=== PATIENT | female | born 1995 | race Caucasian/White ===

== ENCOUNTER 2018-11-09 14:01 | Emergency (ER) | payer OTHER, SELFPAY | END 2018-11-09 14:32 | disposition home or self-care (01) | LOC: BURERS 14:01 | DX: L02.412 Cutaneous abscess of left axilla (principal); F41.9 Anxiety disorder, unspecified; J45.909 Unspecified asthma, uncomplicated | CPT/HCPCS: 10061 ==

== ENCOUNTER 2025-06-17 10:13 | Emergency (ER) | payer SELFPAY | END 2025-06-17 12:10 | disposition home or self-care (01) | LOC: BURERS 10:13 | DX: J45.991 Cough variant asthma (principal); J20.9 Acute bronchitis, unspecified; F17.210 Nicotine dependence, cigarettes, uncomplicated | CPT/HCPCS: 87081; 87428; 87430; 96372; J1885; J2919; J7620 ==